=== PATIENT | male | born 1990 | race Two or more races ===

== ENCOUNTER 2019-04-01 07:32 | Day surgery (SDC) | payer OTHER ==
[2019-04-01 08:00] VITALS: BMI 22.1
--- NOTE | 2019-04-01 08:15 | HP ---
History & Physical Update - History History: No Change - Physical Physical: No Change - Assessment Assessment: No Change - Plan Plan: No Change
--- NOTE | 2019-04-01 08:17 | OP ---
Operative Note - Note: Operative Date: 04/01/19 Pre-Operative Diagnosis: R ureteral calculus Operation: ESWL R Findings: radiopaque 5 mm R UVJ calculus Post-Operative Diagnosis: Same as Pre-op Surgeon: Salvador Godoy Anesthesiologist/CLAIMS TECHNICIAN: Sonia Rae MD Anesthesia: Fractional Estimated Blood Loss (mls): 0 Operative Report Dictated: Yes
[2019-04-01] MEDS ORDERED: MIDAZOLAM HCL 2 MG/2 ML SINGLE DOSE VIAL ONE ×4 (08:55→09:02)
[2019-04-01] MEDS ORDERED: ONDANSETRON 4 MG/2 ML VIAL IVPUSH PRN (09:56)
[2019-04-01] MEDS ORDERED: LACTATED RINGERS SOLUTION 1,000 ML IV SCH (10:00)
--- NOTE | 2019-04-01 10:19 | OP ---
DATE OF OPERATION: 04/01/2019 PREOPERATIVE DIAGNOSIS: Right ureteral calculus. POSTOPERATIVE DIAGNOSIS: Right ureteral calculus. PROCEDURE: Extracorporeal shock-wave lithotripsy, right ureteral calculus. SURGEON: Salvador Thayer MD PULMONARY SPECIALIST: None. ANESTHESIA: IV sedation. ANESTHESIOLOGIST: Sonia Rae MD SPECIMENS: None. CULTURES: None. DRAINS: None. ESTIMATED BLOOD LOSS: None. COMPLICATIONS: None. DESCRIPTION OF PROCEDURE: Patient was brought into the operating room, placed on the operating room table in the supine position. After administration of intravenous sedation, patient was positioned over the treatment head, and under ultrasound guidance, approximately 6-mm right ureterovesical junction calculus was identified under fluoroscopy, targeted, and delivered 3000 shocks at maximum kilovoltage with excellent fragmentation. He tolerated the procedure well. Transferred to the recovery room in stable condition. SALVADOR THAYER M.D. [facility]EDITH/[id number]
[2019-04-01 13:20] VITALS: BP 121/76; PULSE 65; TEMP 97.4
== END 2019-04-01 12:10 | disposition home or self-care (01) ==
LOC: JASU-SURG 07:32
PROVIDERS: ATTEND Urology
PROC: 0TF6XZZ Fragmentation in Right Ureter, External Approach (ICD-10-PCS; principal; 2019-04-01 09:00)
DX: N20.1 Calculus of ureter (principal)
CPT/HCPCS: 94760

== ENCOUNTER 2023-01-15 21:41 | Emergency (ER) | payer OTHER ==
[2023-01-15 21:50] VITALS: BP 104/51; PULSE 81; RESP 20; TEMP 98.6; BMI 21.5
== END 2023-01-15 23:48 | disposition left against medical advice (07) ==
LOC: JERFT 21:41
DX: Z48.02 Encounter for removal of sutures (principal); Z53.21 Procedure and treatment not carried out due to patient leaving prior to being seen by health care provider
CPT/HCPCS: 99281-25